=== PATIENT | male | born 1940 | race Caucasian/White ===

== ENCOUNTER → 2018-09-12 08:15 | Outpatient (CLI) | payer OTHER ==
[2015-09-25 10:27] VITALS: BMI 21.2
--- NOTE | ~2018-09-12 | EC ---
PATIENT:SLAVA ZULUAGA DATE OF SERVICE: 09/12/18 SEX: M MEDICAL RECORD: [id number] DATE OF : 44 LOCATION:[facility] AGE OF PATIENT: 77 ADMISSION DATE: 09/12/18 REFERRING PHYSICIAN: INTERPRETING PHYSICIAN: ASHANTI DOWNS MD ECHOCARDIOGRAM REPORT ECHO CHARGES 4 ECHO COMPLETE Date: 09/12/18 CLINICAL DIAGNOSIS: ISCHEMIC HEART DISEASE ECHOCARDIOGRAPHIC MEASUREMENTS (adult normal given) AC root (d.<3.7cm) 3.2 cm LV Septum d (<1.2 cm> 1.4 cm Valve Excursion 1.2 cm LV Septum (systole) 1.8 cm Left Atria (s.<4.0cm> 2.7 cm LVPW d(<1.2cm) 1.3 cm RV (d.<2.3cm) 2.0 cm LVPW (sytole) 1.8 cm LV diastole(<5.6CM) 5.9 cm MV E-F(>70mm/sec) cm LV systole 5.1 cm LVOT Diameter 1.8 cm MV exc.(>10mm) cm Est.ejection fraction (50-75%) % DOPPLER: LVIT cm/sec A 75.0 cm/sec E 87.0 cm/sec LA cm/sec RVSP 48.0 mmHg LVOT 73.0 cm/sec AOP1/2T m/s Asc. Ao 109 cm/sec RVOT 48.0 cm/sec RA cm/sec PA 87.0 cm/sec AV Gradient Peak 4.8 mmHg AV Mean 2.7 mmHg AV Area 1.5 cm MV Gradient Peak 4.1 mmHg MV Mean 1.4 mmHg MV Area cm COMMENTS: Privacy Officer: Samira GUERRAOE Debit Agent: 1 Dr. Downs TAPE# PACS Pericardial Effusion N DATE OF SERVICE: 09/12/2018 DATE OF SERVICE: 09/12/2018 FINDINGS: 1. Left ventricular chamber sizes are mildly dilated. Left ventricular systolic function is preserved. Overall ejection fraction is estimated at 50%. 2. Left atrium, right atrium and right ventricular chamber sizes are within normal limits. 3. Valvular structures have normal structure and motion. ECHOCARDIOGRAM REPORT [id number] SLAVA ZULUAGA 4. Doppler interrogation reveals [id number] mitral regurgitation, mild tricuspid regurgitation, no other valvular insufficiency or stenosis. Pulmonary systolic pressure is estimated at 48 mmHg. 5. No evidence of pericardial effusion or left ventricular thrombus. TRANSINT:[id number] Voice Confirmation ID: [id number] DOCUMENT ID: [id number] ASHANTI DOWNS MD at 1718 CC: [id number] DICTATION DATE: 09/12/18 1105 CHAIR LIFT OPERATOR: 09/12/18 1148 DEP CLI 09/12/18 [place] [id number] [place] [id number]
[~2018-09-12 08:15] MED LIST: AMITRIPTYLINE H50 MG PO; GLUCOPHAGE850 MG PO; PROTONIX40 MG PO; TRADJENTA5 MG PO; ZIAC 10-6.25 MG1 TAB PO
[2018-09-12 09:40] LABS: APPEARANCE CLEAR (CLEAR); BILIRUBIN NEGATIVE (NEGATIVE); COLOR YELLOW (YELLOW); GLUCOSE NEGATIVE (NEGATIVE); KETONE NEGATIVE (NEGATIVE); NITRITE NEGATIVE (NEGATIVE); PROTEIN NEGATIVE (NEGATIVE); SPECIFIC GRAVITY 1.015 (1.005-1.020); UROBILINOGEN NORMAL (NORMAL)
[2018-09-12 09:58] LABS: ALBUMIN 3.5 g/dL (3.4-5.0); ANION GAP 14.4 mmol/L (8-16); BILIRUBIN - TOTAL 0.3 mg/dL (0.2-1.3); CALCIUM 8.8 mg/dL (8.5-10.1); CARBON DIOXIDE 27.2 mmol/L (21.0-32.0); CREATININE - SERUM 1.6 mg/dL (0.6-1.3); POTASSIUM - SERUM 3.6 mmol/L (3.5-5.1); PROTEIN - SERUM 7.6 g/dL (6.4-8.2)
== END | disposition home or self-care (01) ==
LOC: D.ECHO 08:15
PROVIDERS: Orthopaedic Surgery
DX: I25.9 Chronic ischemic heart disease, unspecified (principal); E11.9 Type 2 diabetes mellitus without complications

== ENCOUNTER → 2020-03-25 15:49 | Outpatient (CLI) | payer MEDICARE, BC ==
[2015-09-25 10:27] VITALS: BMI 21.2
== END | disposition home or self-care (01) ==
LOC: D.LAB 15:49
PROVIDERS: ATTEND Urology
DX: N40.0 Benign prostatic hyperplasia without lower urinary tract symptoms (principal)